=== PATIENT | male | born 1970 | race Caucasian/White ===

== ENCOUNTER 2022-09-01 13:44 | Emergency (ER) | payer OTHER ==
[~2022-09-01] VITALS: Ht 172.7 cm; Wt 83.9 kg
[2022-09-01 13:49] VITALS: BP_SYST 131
--- NOTE | 2022-09-01 13:50 | NUR ---
Placed in room 04 . Placed on radiation monitor, blood pressure machine and pulse oximeter. To gown for exam. Side rails up. Report given to [facility].
--- NOTE | 2022-09-01 13:51 | NUR ---
RECEIVED PT FROM [facility]. PT BIBA ACLS S/P BECOMING INTOXICATED AND ROLLED DOWN A HILL FALLING INTO MADRIGAL WATER, PT SUBMERGED FOR APPROX 30 SECONDS. PT IS AAOX3-4 CONFUSED. ON N/C AT 2LPM. C-SPINE PRECAUTIONS IN PLACE. DISTAL PULSES NORMAL, SKIN CDI, NO EDEMA. DENIES PAIN. SIDERAILS UP X2.
--- NOTE | 2022-09-01 14:11 | NUR ---
DR. RODRIGUEZ AT BEDSIDE TO ASSESS PT.
[2022-09-01] MEDS ORDERED: ONDANSETRON HCL 4 MG/2 ML VIAL IVP ONE (14:30)
[2022-09-01] MEDS ORDERED: NACL 0.9% 1,000 ML IV ONE (14:30)
--- NOTE | 2022-09-01 14:53 | NUR ---
zofran 8mg ivp given for n/v prophylaxis, 1000ml ns bolus initiated, pharmacy laboratory technician obtained blood and samples were taken to lab.
[2022-09-01 14:55] LABS: BASOPHILS % (AUTO) 0.9 % (0.0-2.0); EOSINOPHILS # (AUTO) 0.2 K/uL (0.0-0.4); EOSINOPHILS % (AUTO) 3.7 % (0.0-4.0); HEMATOCRIT 42.6 % (36-54); HEMOGLOBIN 13.9 g/dL (14.0-18.0); LYMPHOCYTES # (AUTO) 1.4 K/uL (1.0-5.5); LYMPHOCYTES % (AUTO) 28.7 % (20.5-51.5); MEAN CORPUSCULAR HEMOGLOBIN 30 pg (27-31); MEAN CORPUSCULAR HGB CONC 33 % (32-36); MEAN CORPUSCULAR VOLUME 92 fL (79.0-98.0); MONOCYTES # (AUTO) 0.3 K/uL (0.0-1.0); MONOCYTES % (AUTO) 5.5 % (1.7-9.3); NEUTROPHILS % (AUTO) 61.2 % (40.0-70.0); PLATELET COUNT (AUTO) 273 K/uL (130-430); RED BLOOD CELL COUNT(AUTO) 4.64 MIL/uL (4.2-6.2); RED CELL DISTRIBUTION WIDTH 15.9 % (9.0-15.0)
--- NOTE | 2022-09-01 14:56 | NUR ---
PT TAKEN FOR CT SCAN AT THIS TIME.
[2022-09-01 15:15] LABS: ALANINE AMINOTRANSFERASE 40 U/L (12-78); ALBUMIN 3.7 g/dL (3.4-4.8); ALCOHOL, BLOOD 265 mg/dL (<10); ANION GAP 15 (5-15); ASPARTATE AMINOTRANSFERASE 43 U/L (10-37); CALCIUM 8.1 mg/dL (8.4-11.0); CHLORIDE 103 mmol/L (98-107); CREATININE 0.73 mg/dL (0.55-1.30); GFR AFRICAN AMERICAN 145 mL/min (>90); GLUCOSE 108 mg/dL (74-106); TOTAL BILIRUBIN 0.2 mg/dL (0.0-1.0); UREA NITROGEN, BLOOD 8 mg/dL (8-21)
[2022-09-01] MEDS ORDERED: KCL 20 mEq in 100 mL (PREMIX) 100 ML IV ONE (15:45)
[2022-09-01] MEDS ORDERED: POTASSIUM CHLORIDE 40 MEQ in D5W 250 ML IV ONE (16:15)
[2022-09-01] MEDS ORDERED: FOLIC ACID 1 MG, THIAMINE HCL 100 MG, MAGNESIUM SULFATE 1 GM, MVI 10 ML in NACL 0.9% 1,... IV ONE (16:15)
[2022-09-01] MEDS ORDERED: LACTULOSE 20 GM/30 ML UDC PO ONE (16:15)
[2022-09-01] MEDS ORDERED: POTASSIUM CHLORIDE 20 MEQ TAB.PRT.SR PO ONE (16:15)
[2022-09-01] MEDS ORDERED: FOLIC ACID 1 MG, MVI 10 ML in NACL 0.9% 1,000 ML IV ONE (16:30)
[2022-09-01] MEDS ORDERED: THIAMINE HCL 100 MG, MAGNESIUM SULFATE 1 GM in NS 100 ML IV ONE (16:30)
[2022-09-01] MEDS ORDERED: CLINDAMYCIN 900 MG in D5W 100 ML IV ONE (17:30)
[2022-09-01] MEDS ORDERED: CLINDAMYCIN 300 MG/50 ML D5W 50 ML IV SCH (17:45)
--- NOTE | 2022-09-01 17:57 | NUR ---
cultures obtained, cleocin ivpb given.
--- NOTE | 2022-09-01 18:22 | NUR ---
HENRIQUE PT WAS ACCEPTED TO [facility] ED TO ED ACCPETTING DOCTOR IS DR Leigh DAMON ,T NUMBER FOR REPORT [phone] ETA 1915 WITH [facility]
[2022-09-01 18:25] VITALS: BP_SYST 142
--- NOTE | 2022-09-01 18:32 | NUR ---
AT BEDSIDE, PT IS SLEEPING ON SKI BASE TRIMMER, UPDATE ON TRANSFER PROCESS TO [facility]
--- NOTE | 2022-09-01 18:58 | NUR ---
PT REQUESTING TO GO TO THE BATHROOM, STATES HE NEEDS TO HAVE A BOWEL MOVEMENT. AMBULATES WITH STEADY GAIT TO BATHROOM
--- NOTE | 2022-09-01 19:11 | NUR ---
PT TO TRANSFER TO [facility], REPORT CALLED TO [phone] SPOKE TO KEL DORADO.
--- NOTE | 2022-09-01 19:17 | NUR ---
ENDORSED PT TO A[facility]. ALL QUESTIONS AND CONCERNS ADDRESSED.
--- NOTE | 2022-09-01 19:33 | NUR ---
TRANSPORT TEAM AT BEDSIDE. REPORT GIVEN. PT READIED FOR TRANSFER.
--- NOTE | 2022-09-01 19:49 | NUR ---
Patient to be transferred to [facility]. Is being transferred due to higher level of care. Receiving facility has accepting physician and available space. ER physician has signed transfer form. Patient or responsible republican has agreed to transfer and signed form. Patient belongings inventoried and will be sent with patient. Copy of nursing notes, lab reports, EKG, Physicians Orders and X-rays to be sent with patient. Report called to at receiving facility. Receiving physician is . ambulance service has been called for transfer. ETA is .
== END 2022-09-01 19:50 | disposition short-term general hospital (02) ==
LOC: SED 13:44
DX: T75.1XXA Unspecified effects of drowning and nonfatal submersion, initial encounter (principal); R41.82 Altered mental status, unspecified; K76.82 Hepatic encephalopathy; F10.129 Alcohol abuse with intoxication, unspecified; E87.6 Hypokalemia; J69.0 Pneumonitis due to inhalation of food and vomit; E86.0 Dehydration; E72.29 Other disorders of urea cycle metabolism; F17.200 Nicotine dependence, unspecified, uncomplicated; Z79.899 Other long term (current) drug therapy; Z20.822 Contact with and (suspected) exposure to COVID-19; Y93.89 Activity, other specified; Y92.89 Other specified places as the place of occurrence of the external cause; Y99.8 Other external cause status; Y90.6 Blood alcohol level of 120-199 mg/100 ml
CPT/HCPCS: 99285; 70450; 96365; 71045; 96361; 96375; 87426; 80053; 82140; 83880; 85025; 87040; 84484; 36415; 93005; 72125; 76376; 96368; 83605; 87804 ×2; G0482; J3490 ×2; J3475; J2405; J3480; J3411; J7060; J7030